=== PATIENT | female | born 1995 | race Two or more races ===

== ENCOUNTER 2017-03-21 18:14 | Emergency (ER) | payer SELFPAY ==
--- NOTE | 2017-03-21 18:34 | ER Document Report ---
ED Medical Screen (RME) - General Chief Complaint: Urinary Problem Stated Complaint: PAINFUL URINATION,VAGINAL PAIN Time Seen by Provider: 03/21/17 18:26 Notes: RME DISCLOSURE I have seen this patient as part of a Rapid Medical Evaluation and, if applicable, placed any initially appropriate orders. The patient will be seen and fully evaluated, including a full history and physical exam, by a provider ( in Main ED or Fast Track) when a room becomes available. 21-year-old female here with complaints of burning with urination, green vaginal discharge, lower abdominal cramping (none at this time), and lower back pain ongoing since yesterday evening. She feels this may be a urinary tract infection but is unsure. She also reports that she has had some "bumps pop up on my outer labia" since yesterday. TRAVEL OUTSIDE OF THE [place] IN LAST 30 DAYS: No - Related Data Allergies/Adverse Reactions: No Known Allergies Allergy (Verified 01/19/16 10:40) Past Medical History - General Last Menstrual Period: End of February 2017 - Social History Frequency of alcohol use: Occasional Drug Abuse: None Pulmonary Medical History: Reports: Hx Pneumonia Renal/ Medical History: Denies: Hx Peritoneal Dialysis Physical Exam - Vital signs Vitals: Temp Pulse Resp BP Pulse Ox 99.3 F 101 H 16 120/75 100 03/21/17 18:25 03/21/17 18:25 03/21/17 18:25 03/21/17 18:25 03/21/17 18:25 Course - Vital Signs Vital signs: Temp Pulse Resp BP Pulse Ox 99.3 F 101 H 16 120/75 100 03/21/17 18:25 03/21/17 18:25 03/21/17 18:25 03/21/17 18:25 03/21/17 18:25
[2017-03-21 19:01] LABS: APPEARANCE,URINE CLEAR; BILIRUBIN,URINE NEGATIVE (NEGATIVE); COLOR,URINE YELLOW; GLUCOSE, URINE NEGATIVE (NEGATIVE); KETONES,URINE NEGATIVE (NEGATIVE); LEUKOCYTE ESTERASE,URINE LARGE (NEGATIVE); NITRITE,URINE NEGATIVE (NEGATIVE); PROTEIN,URINE NEGATIVE (NEGATIVE); URINE SPECIFIC GRAVITY 1.008; UROBILINOGEN,URINE NEGATIVE mg/dL (<2.0)
[2017-03-21 19:39] LABS: BACTERIA (WET MOUNT) 4+ BACTERIA SEEN; EPITHELIALS (WET MOUNT) 3+ EPITHELIALS SEEN; T.VAGINALIS (WET MOUNT) NO TRICHOMONAS SEEN; WBCS (WET MOUNT) 1+ WBCS SEEN; YEAST (WET MOUNT) NO YEAST SEEN
--- NOTE | 2017-03-21 19:44 | ER Document Report ---
HPI - HPI Pain Level: 1 Context: Patient is a 21-year-old female presents emergency department with a chief complaint of vaginal irritation for the past 4 days with associated pyuria started yesterday. She is sexually active with her girlfriend. denies any penile intercourse. Admits to vaginal pain and tenderness of her labia. Also has ingrown hairs with mild erythema no active drainage or tenderness Last MP was two weeks ago - REPRODUCTIVE Reproductive: DENIES: : - DERM Skin Color: Normal Past Medical History - General Last Menstrual Period: End of February 2017 - Social History Smoking Status: Former Smoker Frequency of alcohol use: Occasional Drug Abuse: None Family History: Reviewed & Not Pertinent Patient has suicidal ideation: No Patient has homicidal ideation: No Pulmonary Medical History: Reports: Hx Pneumonia Renal/ Medical History: Denies: Hx Peritoneal Dialysis Vertical Provider Document - CONSTITUTIONAL Agree With Documented VS: Yes Notes: PHYSICAL EXAM GENERAL: Alert, interacts well. ABDOMEN: Soft, nondistended, nontender. No guarding, rebound, or rigidity.. Bowel sounds present in all 4 quadrants. FEMALE : Normal external exam with 2 ingrown hairs without evidence of vesicles. No evidence of lesions, lacerations, bruising or vesicles. Patient refused speculum exam. No evidence of vaginal discharge with odor. No evidence of lesions. Bimanual exam normal no cervical motion tenderness. No adnexal mass or adnexal tenderness. EXTREMITIES: Moves all 4 extremities spontaneously. No edema, radial and dorsalis pedis pulses 2/4 bilaterally. No cyanosis. NEUROLOGICAL: Alert and oriented x4. Normal speech. PSYCH: Normal affect, normal mood. SKIN: Warm, dry, normal turgor. No rashes or lesions noted. - INFECTION CONTROL TRAVEL OUTSIDE OF THE [place] IN LAST 30 DAYS: No - RESPIRATORY O2 Sat by Pulse Oximetry: 100 Course - Re-evaluation Re-evalutation: 03/21/17 20:13 Patient is a 21-year-old female is hemodynamically stable, no acute distress and afebrile. Presentation is consistent with bacterial vaginosis possible underlying UTI. Discussed with patient to take the Flagyl for a couple days and she still having burning with urination outside of vaginal pain that she can start taking Keflex. Patient agrees with plan otherwise discussed strict return precautions and [facility]. Low clinical suspicion for any acute appendicitis, ovarian torsion, ovarian cyst, pelvic inflammatory disease given history, benign physical exam and stable vitals. Patient stable for discharge - Vital Signs Vital signs: Temp Pulse Resp BP Pulse Ox 99.3 F 101 H 16 120/75 100 03/21/17 18:25 03/21/17 18:25 03/21/17 18:25 03/21/17 18:25 03/21/17 18:25 - Laboratory Laboratory results interpreted by me: 03/21/17 18:36 Ur Leukocyte Esterase LARGE H Discharge - Discharge Clinical Impression: Bacterial vaginal infection Condition: Good Disposition: HOME, SELF-CARE Additional Instructions: Start taking the Flagyl tomorrow morning. If symptoms do not improve in 2 days, start the antibiotic Keflex VAGINOSIS, BACTERIAL: Your exam shows you have bacterial vaginosis. This condition is due to an overgrowth of bacteria in the vagina. Symptoms may include vaginal itching or pain, a smelly discharge, and sometimes burning with urination. Normally this is not transmitted by sexual contact. Vaginosis can be treated with oral or topical antibiotics. Metronidazole ( Flagyl) pills are usually effective. Topical vaginal creams include Cleocin and Metro-Gel. You should avoid sexual contact until your symptoms are all better. Call the doctor if you develop pelvic pain, fever, or problems with urination, or if you don't improve as expected. METRONIDAZOLE: Metronidazole (Flagyl) has been prescribed. This medication is used to kill a type of bacteria called anaerobes, and protozoan parasites such as trichomonas and Giardia. Flagyl often causes a metallic taste in the mouth and mild nausea. Do not use alcohol in any form with Flagyl (including alcohol in medication elixirs). Flagyl interacts with alcohol to cause flushing, palpitations, headache, stomach cramps, and vomiting. Do not use Flagyl if you are taking Antabuse (disulfiram). Call the doctor at once if you develop rash, shortness of breath, itching, or lightheadedness. FOLLOW-UP CARE: If you have been referred to a physician for follow-up care, call the physician s office for an appointment as you were instructed or within the next two days. If you experience worsening or a significant change in your symptoms, notify the physician immediately or return to the Emergency Department at any time for re-evaluation. Prescriptions: Cephalexin Monohydrate [Keflex 500 mg Capsule] 500 mg PO BID 5 Days capsule Metronidazole [Flagyl 500 mg Tablet] 500 mg PO BID #14 tablet Referrals: JULISSA LOPEZ MD [ACTIVE STAFF] - Follow up in 1 week
[2017-03-21] MEDS ORDERED: METRONIDAZOLE 500 MG TABLET PO ONE (20:12)
[2017-03-21 20:17] VITALS: BP 119/63
[2017-03-21 21:10] LABS: CHLAM PCR NOT DETECTED (NOT DETECT); GON PCR NOT DETECTED (NOT DETECT)
== END 2017-03-21 20:22 | disposition home or self-care (01) ==
LOC: ER 18:14
DX: N76.0 Acute vaginitis (principal); B96.89 Other specified bacterial agents as the cause of diseases classified elsewhere; L73.1 Pseudofolliculitis barbae; Z87.891 Personal history of nicotine dependence
CPT/HCPCS: 81001; 81025; 87210; 87491; 87591; 99283

== ENCOUNTER 2017-03-24 12:45 | Emergency (ER) | payer SELFPAY ==
--- NOTE | 2017-03-24 13:44 | ER Document Report ---
HPI - HPI Patient complains to provider of: Skin rash Onset: Other - 3 days Onset/Duration: Persistent Quality of pain: Burning Pain Level: 5 Context: Patient complains of painful skin rash to perineum for the past 3 days. Patient was recently here and diagnosed with bacterial vaginosis as well as UTI. Patient states she is developed more lesions and complains of burning with urination. Associated Symptoms: Other - Skin rash. denies: Fever Exacerbated by: Other - Urinating Relieved by: Denies Similar symptoms previously: No Recently seen / treated by doctor: Yes - ROS ROS below otherwise negative: Yes Systems Reviewed and Negative: Yes All other systems reviewed and negative - CONSTITUTIONAL Constitutional: DENIES: Fever, Chills - URINARY Urinary: REPORTS: Dysuria - REPRODUCTIVE LMP: last month Reproductive: DENIES: : - DERM Skin Color: Normal Skin Problems: Rash Past Medical History - General Information source: Patient - Social History Smoking Status: Never Smoker Frequency of alcohol use: Occasional Drug Abuse: None Occupation: Foodservice Family History: Reviewed & Not Pertinent - Medical History Medical History: Other - Anemia Pulmonary Medical History: Reports: Hx Pneumonia Renal/ Medical History: Denies: Hx Peritoneal Dialysis Surgical Hx: Negative Vertical Provider Document - CONSTITUTIONAL Agree With Documented VS: Yes Exam Limitations: No Limitations General Appearance: WD/WN, No Apparent Distress - INFECTION CONTROL TRAVEL OUTSIDE OF THE [place] IN LAST 30 DAYS: No - HEENT HEENT: Atraumatic, Normocephalic - NECK Neck: Normal Inspection - RESPIRATORY Respiratory: Breath Sounds Normal, No Respiratory Distress O2 Sat by Pulse Oximetry: 100 - CARDIOVASCULAR Cardiovascular: Regular Rate, Regular Rhythm - REPRODUCTIVE Female Genitalia: Abnormal Inspection - Vesicular lesions to perineum with tender shallow ulcerations Notes: Left inguinal lymphadenopathy - BACK Back: Normal Inspection. negative: CVA Tenderness-Right, CVA Tenderness-Left - MUSCULOSKELETAL/EXTREMETIES Musculoskeletal/Extremeties: ALEJANDRO HOLLINGSWORTH - NEURO Level of Consciousness: Awake, Alert, Appropriate Motor/Sensory: No Motor Deficit - DERM Integumentary: Warm, Dry, Rash - Vesicular lesions to perineum Course - Re-evaluation Re-evalutation: 03/24/17 13:45 Reviewed report from patient's previous ER visit. Patient denies any sexual intercourse since her last ER visit. Patient's physical exam consistent with herpes, patient educated on transmission and treatment. Patient encouraged to take the medications that she was previously prescribed as directed. - Vital Signs Vital signs: Temp Pulse Resp BP Pulse Ox 98.1 F 74 16 119/82 100 03/24/17 12:51 03/24/17 12:51 03/24/17 12:51 03/24/17 12:51 03/24/17 12:51 Discharge - Discharge Clinical Impression: Herpes Condition: Stable Disposition: HOME, SELF-CARE Instructions: Acyclovir (OM), Genital Herpes (OM) Additional Instructions: Return immediately for any new or worsening symptoms Followup with your primary care provider, call tomorrow to make a followup appointment Continue your antibiotics that you were previously prescribed Prescriptions: Acyclovir [Zovirax 200 mg Capsule] 200 mg PO Q4H #50 capsule Referrals: [facility] [Provider Group] - Follow up as needed [facility] [Provider Group] - Follow up as needed
[2017-03-24] MEDS ORDERED: ACYCLOVIR 200 MG CAPSULE PO ONE (13:57)
[2017-03-24 14:11] VITALS: BP 120/80
== END 2017-03-24 14:08 | disposition home or self-care (01) ==
LOC: ER 12:45
DX: A60.1 Herpesviral infection of perianal skin and rectum (principal); R21 Rash and other nonspecific skin eruption
CPT/HCPCS: 99282